=== PATIENT | male | born 2000 | race Caucasian/White ===

== ENCOUNTER 2018-02-12 21:06 | Emergency (ER) | payer OTHER ==
[2018-02-12 21:17] VITALS: BP 120/79
[2018-02-12] MEDS ORDERED: IBUPROFEN 600 MG TAB PO ONE (21:18)
--- NOTE | 2018-02-12 21:22 | EDPHY ---
H & P Time Seen by Provider: 02/12/18 21:20 HPI/ROS: CHIEF COMPLAINT: Finger injury HISTORY OF PRESENT ILLNESS: The patient is a 17-year-old male who jammed his left ring finger while playing basketball. He now has difficulty straightening the tip of his finger. He has mild discomfort. No numbness or tingling. No previous injuries. REVIEW OF SYSTEMS: Negative Past medical history: Negative Past surgical history: Negative Smoking Status: Never smoked Physical Exam: General Appearance: Alert and no distress. Head: Pupils equal. Normal. Respiratory: No respiratory distress. Cardiac: regular rate and rhythm. Extremities: Patient has flexion of his DI P on his right 3rd digit. There is no significant swelling. Mild tenderness palpation. Neurovascular intact distally. Skin: No rashes or lesions. Neuro: Alert. Normal mood and affect. Constitutional: Initial Vital Signs Temperature (C) 36.9 C 02/12/18 21:14 Heart Rate 98 02/12/18 21:14 Respiratory Rate 16 02/12/18 21:14 Blood Pressure 120/79 02/12/18 21:14 O2 Sat (%) 95 02/12/18 21:14 O2 Delivery Mode Room Air Allergies/Adverse Reactions: No Known Allergies Allergy (Unverified 11/16/14 18:44) Home Medications: Medication Instructions Recorded Miscellaneous Medical Supply [NO 1 e[place] [facility] [place] MEDS[place] Medical Decision Making - Diagnostics Imaging Results: Imaging Impressions Finger X-Ray 02/12/18 21:17 Impression: No definite fracture of the left middle finger. ED Course/Re-evaluation: In the emergency department I discussed possible etiologies with the patient and family. I answered all her questions. X-ray was ordered. Left finger x-ray: Please refer the dictated report. No fracture noted. Discussed results with the patient. I answered all his questions. He was placed in a aluminum foam splint. He will follow up with Orthopedics. He is given contact information. He was instructed to keep his splint in place until follow-up. Differential Diagnosis: My differential includes but is not limited to fracture, dislocation, ligamentous injury, sprain - Data Points Medications Given: Discontinued Medications Ibuprofen (Motrin) 600 mg PO EDNOW ONE Stop: 02/12/18 21:19 Last Admin: 02/12/18 21:21 Dose: 600 mg Departure - Departure Disposition: Home, Routine, Self-Care Clinical Impression: Finger injury Qualifiers: Encounter type: initial encounter Laterality: left Qualified Code(s): S69.92XA - Unspecified injury of left wrist, hand and finger(s), initial encounter Condition: Good Instructions: Finger Sprain (ED) Additional Instructions: Keep your splint in place until follow-up with Orthopedics. Call tomorrow morning to make the appointment with Orthopedics. Referrals: Alicia Lara MD [Primary Care Provider] - As per Instructions Anthony Sung MD [Medical Doctor] - 5-7 days, call for appt.
== END 2018-02-12 21:51 | disposition home or self-care (01) ==
LOC: CED 21:06
DX: S69.92XA Unspecified injury of left wrist, hand and finger(s), initial encounter (principal); W23.0XXA Caught, crushed, jammed, or pinched between moving objects, initial encounter; Y99.8 Other external cause status; Y93.67 Activity, basketball
CPT/HCPCS: 73140-PO